=== PATIENT | male | born 1980 | race Caucasian/White ===

== ENCOUNTER 2021-01-12 10:04 | Emergency (ER) | payer OTHER ==
[~2021-01-12] VITALS: Ht 185.4 cm; Wt 95.5 kg
[2021-01-12] MEDS ORDERED: CELE100C PO (10:20)
[2021-01-12] MEDS ORDERED: KETOROLAC 30 MG/ML 1ML VIAL IM ONE (12:00)
[2021-01-12] MEDS ORDERED: LIDO5DIS41 TOP (12:03)
[2021-01-12] MEDS ORDERED: METH-1164 PO (12:03)
[2021-01-12] MEDS ORDERED: LIDOCAINE 5% (LIDODERM) PATCH TD ONE (12:05)
[2021-01-12 12:19] VITALS: BP 143/92
[2021-01-12] MEDS ORDERED: **NOTE PATIENT COMMENT** MISC XX SCH (21:00)
== END 2021-01-12 12:28 | disposition home or self-care (01) ==
LOC: M ED 10:04
DX: M54.41 Lumbago with sciatica, right side (principal); M70.71 Other bursitis of hip, right hip; Z88.0 Allergy status to penicillin
CPT/HCPCS: 96372; 99283; J1885